=== PATIENT | male | born 1960 | race American Indian/Alaskan Native ===

== ENCOUNTER 2022-08-19 10:37 | Outpatient (CLI) | payer BC, MEDICARE ==
--- NOTE | 2022-08-19 17:19 | Magnetic Resonance Report ---
MR lumbar spine wo con INDICATION: M54.50--LOW BACK PAIN--BILAT LEG PAIN COMPARISON: None. TECHNIQUE: Multiplanar, multisequence MRI of the lumbar spine was obtained. FINDINGS: Alignment is normal. No suspicious or aggressive osseous marrow signal. No acute compressi on fractures. The conus terminates normally and demonstrates normal signal. Level by level: Nomenclature: [id number] is defined by image 42 of series 6. L1-L2: No significant disc abnormality. No significant facet arthropathy. No significant spinal canal stenosis. No significant foraminal narrowing. L2-L3: Annular fissure with tiny left foraminal protrusion results in mild left foraminal narrowing. No significant facet arthropathy. No significant spinal canal stenosis. No significant right foramina l narrowing. L3-L4: Annular fissure with tiny right foraminal protrusion results in mild right foraminal narrowing . No significant facet arthropathy. No significant spinal canal stenosis. No significant left foramin al narrowing. L4-L5: 2 mm retrolisthesis with uncovering of the inferior aspect of the disc. Mild facet arthropathy . Mild spinal canal stenosis. Mild bilateral foraminal narrowing. L5-S1: Minimal disc bulge. No significant facet arthropathy. No significant spinal canal stenosis. No significant foraminal narrowing. IMPRESSION: 1. Tiny foraminal protrusions and left at L2-3 and on the right L3-L4 with mild foraminal narrowing. Clinically for nerve symptoms. 2. There is also mild spinal canal stenosis and foraminal narrowing at L4-5. Definitions used for the purposes of this report: Lumbar canal stenosis (Park et al. Br J Radiol. 2013 March;86(7095):[id number]): No stenosis: No attenuation of the CSF spaces Mild stenosis: Anterior CSF space mildly obliterated Moderate stenosis: Anterior CSF space is moderately obliterated; cauda equina partially aggregated Severe stenosis: Marked compression of the dural sac; cauda equina cannot be visually and a ppear as a bundle Lumbar lateral recess stenosis (Wayne et al. World J Radiol. 2017 April 25;9(5):223-229): No stenosis: Nerve root is bathed in fluid Mild stenosis: Narrowing of the lateral recess without root deviation Moderate stenosis: Narrowing of the recess with nerve root deviation Severe stenosis: Compression of the nerve root Lumbar neural foraminal stenosis (Parviz et al. AJR Am J Roentgenol. 2009;194(4):1095-8): No stenosis: No attenuation of the fat in the foramen Mild stenosis: Loss of the fat in the foramen on two sides Moderate stenosis: Loss of the fat in the foramen all four sides Severe stenosis: Loss of the fat in the foramen all four sides and compression of the nerve root Signer Name: Stoney Parikh MD Signed: 08/19/2022 5:15 PM Workstation Name: [id number]
== END 2022-08-19 10:38 | disposition home or self-care (01) ==
LOC: MRI 10:37
PROVIDERS: ATTEND Anesthesiology
DX: M51.17 Intervertebral disc disorders with radiculopathy, lumbosacral region (principal); M47.26 Other spondylosis with radiculopathy, lumbar region; M48.061 Spinal stenosis, lumbar region without neurogenic claudication
CPT/HCPCS: 72148